=== PATIENT | female | born 1940 | race Hispanic/Latino ===

== ENCOUNTER → 2018-12-22 | Outpatient (CLI) | payer OTHER ==
[~2018-12-22] MED LIST: ASPI-1181 PO; ATOR40TA71 PO; DULO30CA52 PO; ENAL20TA PO; FURO20TA4 PO; GABA-529 PO; HUM10VIA6 SQ; ISOS60TA4 PO; LEVO75TA4 PO; RIVA20TA PO
== END | disposition home or self-care (01) ==
LOC: SHCH 09:30
PROVIDERS: ATTEND Internal Medicine Cardiovascular Disease
DX: I08.2 Rheumatic disorders of both aortic and tricuspid valves (principal); I27.20 Pulmonary hypertension, unspecified
CPT/HCPCS: 93306

== ENCOUNTER 2020-11-29 06:09 | Day surgery (SDC) | payer OTHER ==
[2020-11-27 10:20] VITALS: BP 125/58
[2020-11-27 12:04] LABS: BASOPHILS % (AUTO) 1.5 % (0.0-5.0); EOSINOPHILS % (AUTO) 2.9 % (0.0-8.0); HEMATOCRIT 40.2 % (36-48); LYMPHOCYTES % (AUTO) 23.4 % (21.0-51.0); MEAN CORPUSCULAR HEMOGLOBIN 25.1 pg (27.0-33.0); MEAN CORPUSCULAR HGB CONC 29.9 g/dL (32.0-36.0); MEAN CORPUSCULAR VOLUME 84.1 fL (79-99); MONOCYTES % (AUTO) 12.2 % (3.0-13.0); NEUTROPHILS % (AUTO) 59.6 % (40.0-77.0); PLATELET COUNT (AUTO) 271 K/uL (130-400); RED BLOOD CELL COUNT(AUTO) 4.78 MIL/uL (4.00-5.50); RED CELL DISTRIBUTION WIDTH 21.7 % (11.0-15.5); WHITE BLOOD COUNT (AUTO) 5.5 K/uL (4.8-10.8)
[2020-11-27 12:11] LABS: POTASSIUM 3.9 mmol/L (3.5-5.1)
[2020-11-27 12:19] LABS: INR 2.06 (0.85-1.15)
[2020-11-27 12:20] LABS: PARTIAL THROMBOPLASTIN TIME 44.6 SEC (26.3-35.5)
[~2020-11-29] VITALS: Ht 154.9 cm; Wt 69.0 kg
[2020-11-29] VITALS (9 sets, daily range): BP systolic 103–122; BP diastolic 42–64
[~2020-11-29 06:09] MED LIST changes: +0.9%NACL 1000ML 1,000 ML IV SCH; -ASPI-1181 PO; -ENAL20TA PO; +FISH1CAP27 PO; -FURO20TA4 PO; +FURO40TA5 PO; -ISOS60TA4 PO; +METO50TA18 PO; +[UNRECOGNIZED DRUG - REMARK] MISC ONE; +[UNRECOGNIZED DRUG - REMARK] MISC SCH
[2020-11-29] MEDS ORDERED: MIDAZOLAM HCL 1 MG/ML 2ML VIAL ONE ×2 (07:54→09:30)
[2020-11-29] MEDS ORDERED: HEPARIN 10,000 UNIT/10ML (1,000 UNIT/ML) VIAL ONE (07:54)
[2020-11-29] MEDS ORDERED: MEPERIDINE-PF 25 MG/ML SYG ONE ×2 (07:54→09:30)
[2020-11-29] MEDS ORDERED: LIDOCAINE HCL 400MG/20ML VIAL ONE (07:54)
[2020-11-29] MEDS ORDERED: RIVAROXABAN 20 MG TABLET PO SCH (10:30)
== END 2020-11-29 14:34 | disposition home or self-care (01) ==
LOC: DAH 06:09
PROVIDERS: ATTEND Internal Medicine Cardiovascular Disease
DX: I48.3 Typical atrial flutter (principal); I49.1 Atrial premature depolarization; I49.3 Ventricular premature depolarization; I10 Essential (primary) hypertension; I25.10 Atherosclerotic heart disease of native coronary artery without angina pectoris; I25.2 Old myocardial infarction; E78.5 Hyperlipidemia, unspecified; E11.9 Type 2 diabetes mellitus without complications; E66.9 Obesity, unspecified; Z79.01 Long term (current) use of anticoagulants; Z79.899 Other long term (current) drug therapy; Z95.5 Presence of coronary angioplasty implant and graft; Z68.28 Body mass index [BMI] 28.0-28.9, adult; Z82.49 Family history of ischemic heart disease and other diseases of the circulatory system
CPT/HCPCS: 36415; 80048; 82948 ×2; 85025; 85610; 85730; 93005 ×2; 93613; 93621; 93653; A4215; A4216; A4221; A4222; A4223 ×3; A4606; A4615; A4649 ×2; A4663; C1730; C1732; C1894 ×2; J1644 ×2; J2175 ×2; J2250 ×2; J3490; 99156; 99157

== ENCOUNTER → 2021-05-14 | Outpatient (CLI) | payer OTHER ==
[~2021-05-14] MED LIST changes: -0.9%NACL 1000ML 1,000 ML IV SCH; -METO50TA18 PO; -[UNRECOGNIZED DRUG - REMARK] MISC ONE; -[UNRECOGNIZED DRUG - REMARK] MISC SCH
== END | disposition home or self-care (01) ==
LOC: SHCH 12:47
PROVIDERS: ATTEND Internal Medicine Cardiovascular Disease
DX: R06.02 Shortness of breath (principal)
CPT/HCPCS: 93306

== ENCOUNTER → 2021-05-15 | Outpatient (CLI) | payer OTHER ==
[~2021-05-15] VITALS: Ht 154.9 cm; Wt 60.8 kg
[~2021-05-15] MED LIST changes: +REGADENOSON 0.4 MG/5 ML PF SYG IVP SCH
== END | disposition home or self-care (01) ==
LOC: SHCH 09:25
PROVIDERS: ATTEND Internal Medicine Cardiovascular Disease
DX: I48.91 Unspecified atrial fibrillation (principal); R06.02 Shortness of breath
CPT/HCPCS: 78452; 93017; 96374; A9500 ×2; J2785

== ENCOUNTER → 2021-12-03 | Outpatient (CLI) | payer OTHER ==
[~2021-12-03] MED LIST changes: +CLOP75TA14 PO; +FURO20TA6 PO; -FURO40TA5 PO; -GABA-529 PO; -HUM10VIA6 SQ; +LEVO75 PO; -LEVO75TA4 PO; +LORA10TA7 PO; +NITR0.4T50 SL; -REGADENOSON 0.4 MG/5 ML PF SYG IVP SCH; +RIVA15TA PO; -RIVA20TA PO
== END | disposition home or self-care (01) ==
LOC: SHCH 09:14
PROVIDERS: ATTEND Internal Medicine Cardiovascular Disease
DX: I08.3 Combined rheumatic disorders of mitral, aortic and tricuspid valves (principal); I25.5 Ischemic cardiomyopathy; I11.9 Hypertensive heart disease without heart failure; I25.10 Atherosclerotic heart disease of native coronary artery without angina pectoris; E11.9 Type 2 diabetes mellitus without complications; E66.9 Obesity, unspecified; E78.5 Hyperlipidemia, unspecified; Z95.1 Presence of aortocoronary bypass graft
CPT/HCPCS: 93306

== ENCOUNTER → 2021-12-10 | Outpatient (CLI) | payer OTHER ==
[~2021-12-10] VITALS: Ht 154.9 cm; Wt 61.2 kg
[~2021-12-10] MED LIST changes: +REGADENOSON 0.4 MG/5 ML PF SYG IVP SCH
== END | disposition home or self-care (01) ==
LOC: SHCH 09:07
PROVIDERS: ATTEND Internal Medicine Cardiovascular Disease
DX: I48.92 Unspecified atrial flutter (principal); I25.5 Ischemic cardiomyopathy; I51.7 Cardiomegaly
CPT/HCPCS: 78452; 93017; J2785; A9500 ×2; 96374

== ENCOUNTER 2022-02-15 08:37 | Day surgery (SDC) | payer OTHER ==
[2022-02-12 11:34] LABS: BASOPHILS % (AUTO) 1.4 % (0.0-5.0); EOSINOPHILS % (AUTO) 3.1 % (0.0-8.0); LYMPHOCYTES % (AUTO) 13.8 % (21.0-51.0); MEAN CORPUSCULAR HEMOGLOBIN 26.8 pg (27.0-33.0); MEAN CORPUSCULAR HGB CONC 30.9 g/dL (32.0-36.0); MEAN CORPUSCULAR VOLUME 86.8 fL (79-99); NEUTROPHILS % (AUTO) 66.9 % (40.0-77.0); PLATELET COUNT (AUTO) 274 K/uL (130-400); RED CELL DISTRIBUTION WIDTH 18.5 % (11.0-15.5); WHITE BLOOD COUNT (AUTO) 4.9 K/uL (4.8-10.8)
[2022-02-12 11:48] LABS: INR 1.89 (0.85-1.15); PROTHROMBIN TIME 19.9 SEC (9.6-11.6)
[2022-02-12 11:49] LABS: CREATININE 1.3 mg/dL (0.5-1.5); PARTIAL THROMBOPLASTIN TIME 42.6 SEC (26.3-35.5); POTASSIUM 3.8 mmol/L (3.5-5.1)
[2022-02-12 11:55] LABS: B-TYPE NATRIURETIC PEPTIDE 464 pg/mL (0-100)
[2022-02-12 11:56] LABS: APPEARANCE,URINE CLEAR (CLEAR); BILIRUBIN,URINE NEGATIVE (NEGATIVE); COLOR,URINE LIGHT-YELLOW (YELLOW); GLUCOSE, URINE (UA) NEGATIVE (NEGATIVE); KETONES,URINE NEGATIVE (NEGATIVE); LEUKOCYTE ESTERASE ,URINE 25 Leu/uL (NEGATIVE); NITRATE,URINE NEGATIVE (NEGATIVE); OCCULT BLOOD,URINE NEGATIVE (NEGATIVE); PROTEIN,URINE NEGATIVE (NEGATIVE); UROBILINOGEN,URINE 0.2 mg/dL (0.2-1.0)
[2022-02-12 12:33] LABS: BACTERIA,URINE Rare /HPF (None Seen); RBC,URINE None Seen /HPF (0-1); WBC,URINE 0-1 /HPF (0-1)
[2022-02-14 09:21] VITALS: BP 133/76
[2022-02-15] VITALS (12 sets, daily range): BP systolic 117–156; BP diastolic 51–73
[~2022-02-15] VITALS: Ht 154.9 cm; Wt 61.1 kg
[~2022-02-15 08:37] MED LIST changes: +0.9%NACL 1000ML 1,000 ML IV SCH; +AMIO200T68 PO; -CLOP75TA14 PO; +CLOP75TA32 PO; -FURO20TA6 PO; +FURO40TA5 PO; +INSULIN SQ; +ISOS30TA92 PO; -LORA10TA7 PO; +METO-408 PO; -REGADENOSON 0.4 MG/5 ML PF SYG IVP SCH
[2022-02-15] MEDS ORDERED: HEPARIN 10,000 UNIT/10ML (1,000 UNIT/ML) VIAL ONE (10:27)
[2022-02-15] MEDS ORDERED: MEPERIDINE-PF 25 MG/ML SYG ONE (10:27)
[2022-02-15] MEDS ORDERED: IOHEXOL 350 MG/ML 100ML INFUS..BTL IV ONE (10:27)
[2022-02-15] MEDS ORDERED: NITROGLYCERIN 50MG VIAL ONE (10:27)
[2022-02-15] MEDS ORDERED: LIDOCAINE HCL 1% 20 ML VIAL ONE (10:27)
[2022-02-15] MEDS ORDERED: MIDAZOLAM HCL 1 MG/ML 2ML VIAL ONE (10:28)
[2022-02-15] MEDS ORDERED: DEXTROSE 50%-WATER 50 ML DISP.SYRIN IV PRN (12:00)
[2022-02-15] MEDS ORDERED: GLUCAGON 1MG KIT 1 MG ML IM PRN (12:00)
[2022-02-15] MEDS ORDERED: 0.9%NACL 1000ML 1,000 ML IV SCH (12:00)
== END 2022-02-15 17:30 | disposition home or self-care (01) ==
LOC: DAH 08:37
PROVIDERS: ATTEND Internal Medicine Cardiovascular Disease
DX: I25.119 Atherosclerotic heart disease of native coronary artery with unspecified angina pectoris (principal); I25.729 Atherosclerosis of autologous artery coronary artery bypass graft(s) with unspecified angina pectoris; I25.82 Chronic total occlusion of coronary artery; I50.42 Chronic combined systolic (congestive) and diastolic (congestive) heart failure; I11.0 Hypertensive heart disease with heart failure; I50.9 Heart failure, unspecified; F32.A Depression, unspecified; Z79.4 Long term (current) use of insulin; Z79.890 Hormone replacement therapy; Z79.01 Long term (current) use of anticoagulants; Z79.899 Other long term (current) drug therapy; Z98.890 Other specified postprocedural states; Z95.5 Presence of coronary angioplasty implant and graft; Z82.49 Family history of ischemic heart disease and other diseases of the circulatory system
CPT/HCPCS: 80048; 83880; 85025; 85610; 85730; 81001; 36415; 71045; 93005; 93459; 82948; C1894; C1760; J7030; J2250; J2175; J1644; J3490; Q9967; A4215; A4222; A4221; A4663; A4216; A4606; Q9965; A4223 ×3; 93457; 99156; 99157